=== PATIENT | female | born 1945 | race Hispanic/Latino ===

== ENCOUNTER → 2018-12-08 | Outpatient (CLI) | payer OTHER | END | disposition home or self-care (01) | LOC: RAH 11:13 | PROVIDERS: ATTEND Family Medicine | DX: Z12.31 Encounter for screening mammogram for malignant neoplasm of breast (principal) | CPT/HCPCS: 77067 ==

== ENCOUNTER → 2019-07-11 | Outpatient (CLI) | payer OTHER | END | disposition home or self-care (01) | LOC: SHCH 08:28 | PROVIDERS: ATTEND Internal Medicine Cardiovascular Disease | DX: I08.0 Rheumatic disorders of both mitral and aortic valves (principal); I11.9 Hypertensive heart disease without heart failure | CPT/HCPCS: 93306 ==

== ENCOUNTER → 2020-08-08 | Outpatient (CLI) | payer OTHER ==
[2020-08-08 13:31] LABS: CREATININE 1.4 mg/dL (0.5-1.5)
== END | disposition home or self-care (01) ==
LOC: LAB 12:18
PROVIDERS: ATTEND Family Medicine
DX: M79.605 Pain in left leg (principal); M54.5 Low back pain
CPT/HCPCS: 36415; 82565; 84520

== ENCOUNTER → 2020-09-04 | Outpatient (CLI) | payer OTHER | END | disposition home or self-care (01) | LOC: SHCH 08:09 | PROVIDERS: ATTEND Internal Medicine Cardiovascular Disease | DX: I08.0 Rheumatic disorders of both mitral and aortic valves (principal); R01.1 Cardiac murmur, unspecified | CPT/HCPCS: 93306 ==

== ENCOUNTER → 2020-09-11 | Outpatient (CLI) | payer OTHER | END | disposition home or self-care (01) | LOC: SHCH 09:57 | PROVIDERS: ATTEND Internal Medicine Cardiovascular Disease | DX: I65.23 Occlusion and stenosis of bilateral carotid arteries (principal); R09.89 Other specified symptoms and signs involving the circulatory and respiratory systems | CPT/HCPCS: 93880 ==

== ENCOUNTER → 2022-01-23 | Outpatient (CLI) | payer OTHER | END | disposition home or self-care (01) | LOC: SHCH 09:18 | PROVIDERS: ATTEND Internal Medicine Cardiovascular Disease | DX: I11.9 Hypertensive heart disease without heart failure (principal); I35.0 Nonrheumatic aortic (valve) stenosis | CPT/HCPCS: 93306; 93880 ==

== ENCOUNTER → 2023-10-19 | Outpatient (CLI) | payer OTHER ==
[~2023-10-19] MED LIST: APIX5TAB PO; DRON400T7 PO; FENO145T26 PO; FLUT1BLS3 IH; FOLI1 PO; FOLI1TAB85 PO; FURO40TA5 PO; METO50 PO; PRAV20TA4 PO
[2023-10-19 12:53] LABS: ALBUMIN 2.9 g/dL (3.5-5.0); BILIRUBIN,TOTAL 0.6 mg/dL (0.2-1.0); TOTAL PROTEIN, SERUM 9.3 g/dL (6.0-8.3)
[2023-10-19 15:04] LABS: POTASSIUM 2.8 mmol/L (3.5-5.1)
[2023-10-19 15:21] LABS: MAGNESIUM 1.6 mg/dL (1.6-2.6)
== END | disposition home or self-care (01) ==
LOC: LAB 09:53
PROVIDERS: ATTEND Physician Assistant
DX: I10 Essential (primary) hypertension (principal); E78.5 Hyperlipidemia, unspecified
CPT/HCPCS: 36415; 80053; 83735; 83880

== ENCOUNTER → 2023-10-26 | Outpatient (CLI) | payer OTHER ==
[2023-10-26 12:51] LABS: ALBUMIN 3.3 g/dL (3.5-5.0); BILIRUBIN,TOTAL 0.5 mg/dL (0.2-1.0); POTASSIUM 4.5 mmol/L (3.5-5.1); TOTAL PROTEIN, SERUM 8.8 g/dL (6.0-8.3)
== END | disposition home or self-care (01) ==
LOC: LAB 10:05
PROVIDERS: ATTEND Internal Medicine Cardiovascular Disease
DX: I10 Essential (primary) hypertension (principal)
CPT/HCPCS: 36415; 80053

== ENCOUNTER → 2023-11-02 | Outpatient (CLI) | payer OTHER ==
[~2023-11-02] MED LIST changes: +REGADENOSON 0.4 MG/5 ML PF SYG IVP ONE
== END | disposition home or self-care (01) ==
LOC: SHCH 08:32
PROVIDERS: ATTEND Internal Medicine Cardiovascular Disease
DX: I25.10 Atherosclerotic heart disease of native coronary artery without angina pectoris (principal); I48.91 Unspecified atrial fibrillation; R07.89 Other chest pain; R53.83 Other fatigue
CPT/HCPCS: 78452; 96374; 93017; J2785; A9500 ×2

== ENCOUNTER 2023-11-25 06:37 | Day surgery (SDC) | payer OTHER ==
[2023-11-23 12:03] VITALS: BP 131/73; PULSE 90; RESP 19
[2023-11-23 12:22] LABS: BASOPHILS # (AUTO) 0.06 K/uL (0.00-0.20); BASOPHILS % (AUTO) 0.6 % (0.0-5.0); EOSINOPHILS # (AUTO) 0.07 K/uL (0.00-0.70); EOSINOPHILS % (AUTO) 0.7 % (0.0-8.0); HEMATOCRIT 33.5 % (36-48); IMMATURE GRANULOCYTE ABSOLUTE 0.03 K/uL (0-1); LYMPHOCYTES # (AUTO) 0.7 K/uL (1.0-4.8); LYMPHOCYTES % (AUTO) 7.6 % (21.0-51.0); MEAN CORPUSCULAR HEMOGLOBIN 28.9 pg (27.0-33.0); MEAN CORPUSCULAR VOLUME 93.1 fL (79-99); MONOCYTES # (AUTO) 0.5 K/uL (0.1-1.0); MONOCYTES % (AUTO) 5.2 % (3.0-13.0); NEUTROPHILS # (AUTO) 8.1 K/uL (1.8-7.7); NEUTROPHILS % (AUTO) 85.6 % (40.0-77.0); PLATELET COUNT (AUTO) 438 K/uL (130-400); WHITE BLOOD COUNT (AUTO) 9.4 K/uL (4.8-10.8)
[2023-11-23 12:39] LABS: CREATININE 1.6 mg/dL (0.5-1.5); POTASSIUM 4.2 mmol/L (3.5-5.1)
[~2023-11-25] VITALS: Ht 152.4 cm; Wt 86.9 kg
[2023-11-25] VITALS (7 sets, daily range): BP systolic 102–120; BP diastolic 50–64; PULSE 37–77; RESP 14–16
[~2023-11-25 06:37] MED LIST changes: +FURO20TA6 PO; -FURO40TA5 PO; +PROP225C8 PO; -REGADENOSON 0.4 MG/5 ML PF SYG IVP ONE
[2023-11-25] MEDS ORDERED: LIDOCAINE PF 100MG/5ML (2%) SYRINGE 5ML ONE (07:50)
[2023-11-25] MEDS ORDERED: PROPOFOL 10 MG/ML 20ML VIAL IV ONE (07:51)
[2023-11-25] MEDS ORDERED: PHENYLEPHRINE HCL 10 MG/ML 1ML VIAL IV ONE (07:52)
[2023-11-25] MEDS: 0.9%NACL 1000ML 1,000 ML IV ONE (07:55)
== END 2023-11-25 11:30 | disposition home or self-care (01) ==
LOC: DAH 06:37
PROVIDERS: ATTEND Internal Medicine Cardiovascular Disease
DX: I48.19 Other persistent atrial fibrillation (principal); E11.22 Type 2 diabetes mellitus with diabetic chronic kidney disease; I12.9 Hypertensive chronic kidney disease with stage 1 through stage 4 chronic kidney disease, or unspecified chronic kidney disease; N18.31 Chronic kidney disease, stage 3a; J45.909 Unspecified asthma, uncomplicated; M81.0 Age-related osteoporosis without current pathological fracture; E66.9 Obesity, unspecified; E78.5 Hyperlipidemia, unspecified; G47.33 Obstructive sleep apnea (adult) (pediatric); Z79.899 Other long term (current) drug therapy; Z79.01 Long term (current) use of anticoagulants; Z88.0 Allergy status to penicillin; Z88.8 Allergy status to other drugs, medicaments and biological substances; Z68.35 Body mass index [BMI] 35.0-35.9, adult
CPT/HCPCS: 80048; 85025; 36415; 92960; 93005 ×2; J7030; J2001; J2704; J2371; A4620; A4215; A4213; A4222; A4221; A4663; A4216; A4606; A4223 ×2; J3490

== ENCOUNTER 2024-02-02 09:30 | Day surgery (SDC) | payer OTHER ==
[2024-02-01 16:02] LABS: BASOPHILS # (AUTO) 0.02 K/uL (0.00-0.20); BASOPHILS % (AUTO) 0.2 % (0.0-5.0); EOSINOPHILS # (AUTO) 0.36 K/uL (0.00-0.70); EOSINOPHILS % (AUTO) 4.1 % (0.0-8.0); HEMATOCRIT 32.4 % (36-48); IMMATURE GRANULOCYTE ABSOLUTE 0.04 K/uL (0-1); LYMPHOCYTES # (AUTO) 0.5 K/uL (1.0-4.8); LYMPHOCYTES % (AUTO) 5.2 % (21.0-51.0); MEAN CORPUSCULAR HGB CONC 31.2 g/dL (32.0-36.0); MEAN CORPUSCULAR VOLUME 93.1 fL (79-99); MONOCYTES # (AUTO) 0.5 K/uL (0.1-1.0); NEUTROPHILS # (AUTO) 7.3 K/uL (1.8-7.7); PLATELET COUNT (AUTO) 321 K/uL (130-400); RED BLOOD CELL COUNT(AUTO) 3.48 MIL/uL (4.00-5.50); RED CELL DISTRIBUTION WIDTH 15.2 % (11.0-15.5); WHITE BLOOD COUNT (AUTO) 8.7 K/uL (4.8-10.8)
[2024-02-01 16:05] VITALS: BP 112/70; PULSE 110; RESP 16
[2024-02-01 16:14] LABS: CREATININE 2.2 mg/dL (0.5-1.0); POTASSIUM 4.3 mmol/L (3.5-5.1)
[~2024-02-02] VITALS: Ht 152.4 cm; Wt 81.6 kg
[2024-02-02] VITALS (10 sets, daily range): BP systolic 108–144; BP diastolic 48–78; PULSE 45–96; RESP 14–16
[~2024-02-02 09:30] MED LIST changes: +ALBUHFA IH; +AMIO200T68 PO; -DRON400T7 PO; -FOLI1TAB85 PO; -FURO20TA6 PO; +FURO40TA5 PO; +METO25TA6 PO; -METO50 PO; -PROP225C8 PO
[2024-02-02] MEDS ORDERED: 0.9%NACL 1000ML 1,000 ML IV ONE (11:30)
[2024-02-02] MEDS ORDERED: PROPOFOL 10 MG/ML 20ML VIAL IV ONE (13:38)
== END 2024-02-02 15:10 | disposition home or self-care (01) ==
LOC: DAH 09:30
PROVIDERS: ATTEND Internal Medicine Cardiovascular Disease
DX: I48.19 Other persistent atrial fibrillation (principal); I12.9 Hypertensive chronic kidney disease with stage 1 through stage 4 chronic kidney disease, or unspecified chronic kidney disease; N18.31 Chronic kidney disease, stage 3a; E78.5 Hyperlipidemia, unspecified; J45.909 Unspecified asthma, uncomplicated; G47.33 Obstructive sleep apnea (adult) (pediatric); M81.0 Age-related osteoporosis without current pathological fracture; E66.9 Obesity, unspecified; Z82.49 Family history of ischemic heart disease and other diseases of the circulatory system; Z88.0 Allergy status to penicillin; Z68.34 Body mass index [BMI] 34.0-34.9, adult
CPT/HCPCS: 80048; 85025; 36415; 92960; 93005 ×2; J7030; J2704; A4620; A4215; A4222; A4221; A4663; A4216; A4606; A4223 ×3; J3490

== ENCOUNTER 2024-02-29 17:39 | Observation (INO) | payer OTHER ==
[~2024-02-29] VITALS: Ht 152.4 cm; Wt 79.3 kg
[~2024-02-29 17:39] MED LIST changes: -AMIO200T68 PO; +DOXY100T2 PO; +LEVO250T75 PO; -METO25TA6 PO; +PANT40TA PO; +PRED20B PO
[2024-02-29 18:49] LABS: EOSINOPHILS # (AUTO) 0.11 K/uL (0.00-0.70); EOSINOPHILS % (AUTO) 1.4 % (0.0-8.0); HEMATOCRIT 36.2 % (36-48); IMMATURE GRANULOCYTE ABSOLUTE 0.02 K/uL (0-1); LYMPHOCYTES # (AUTO) 1.2 K/uL (1.0-4.8); LYMPHOCYTES % (AUTO) 15.7 % (21.0-51.0); MEAN CORPUSCULAR HEMOGLOBIN 28.6 pg (27.0-33.0); MEAN CORPUSCULAR HGB CONC 31.8 g/dL (32.0-36.0); MONOCYTES # (AUTO) 0.7 K/uL (0.1-1.0); NEUTROPHILS # (AUTO) 5.8 K/uL (1.8-7.7); NEUTROPHILS % (AUTO) 73.6 % (40.0-77.0); PLATELET COUNT (AUTO) 220 K/uL (130-400); RED BLOOD CELL COUNT(AUTO) 4.02 MIL/uL (4.00-5.50); WHITE BLOOD COUNT (AUTO) 7.8 K/uL (4.8-10.8)
[2024-02-29 19:04] LABS: INR 1.21 (0.85-1.15); PROTHROMBIN TIME 14.1 SEC (9.6-11.6)
[2024-02-29 19:07] LABS: PARTIAL THROMBOPLASTIN TIME 31.1 SEC (26.3-35.5)
[2024-02-29 19:21] LABS: POTASSIUM 4.3 mmol/L (3.5-5.1)
[2024-02-29 19:22] LABS: CREATININE 2.7 mg/dL (0.5-1.0)
[2024-02-29] MEDS: 0.9% NACL 500ML IV.SOLN 500 ML IV ONE (20:20)
[2024-02-29] MEDS ORDERED: TEMAZEPAM 15 MG CAPSULE PO PRN (23:30)
[2024-02-29] MEDS ORDERED: ONDANSETRON 4MG INJ IVP PRN (23:30)
[2024-02-29] MEDS ORDERED: HYDRALAZINE 20MG/ML VIAL IV PRN (23:30)
[2024-02-29] MEDS ORDERED: DOCUSATE SODIUM 100 MG CAP PO PRN (23:30)
[2024-02-29] MEDS ORDERED: LACTULOSE 20 GM/30 ML UDCUP PO PRN (23:30)
[2024-02-29] MEDS ORDERED: ACETAMINOPHEN 325 MG TAB PO PRN (23:30)
[2024-02-29] MEDS ORDERED: ALBUTEROL 0.083% 2.5 MG/3 ML INH IH PRN (23:30)
[2024-02-29] MEDS ORDERED: ACETAMINOPHEN 650 MG SUPPOSITORY RC PRN (23:30)
[2024-03-01] VITALS (10 sets, daily range): BP systolic 115–152; BP diastolic 39–64; PULSE 50–55; RESP 17–19; O2SAT 92–99
[2024-03-01] MEDS ORDERED: ACET-66 PO (00:54)
[2024-03-01 05:16] LABS: BASOPHILS # (AUTO) 0.01 K/uL (0.00-0.20); BASOPHILS % (AUTO) 0.2 % (0.0-5.0); EOSINOPHILS # (AUTO) 0.11 K/uL (0.00-0.70); EOSINOPHILS % (AUTO) 1.8 % (0.0-8.0); HEMATOCRIT 35.9 % (36-48); IMMATURE GRANULOCYTE ABSOLUTE 0.01 K/uL (0-1); LYMPHOCYTES # (AUTO) 1.1 K/uL (1.0-4.8); LYMPHOCYTES % (AUTO) 18.6 % (21.0-51.0); MEAN CORPUSCULAR HEMOGLOBIN 29.2 pg (27.0-33.0); MEAN CORPUSCULAR HGB CONC 31.2 g/dL (32.0-36.0); MEAN CORPUSCULAR VOLUME 93.7 fL (79-99); MONOCYTES # (AUTO) 0.5 K/uL (0.1-1.0); NEUTROPHILS # (AUTO) 4.2 K/uL (1.8-7.7); NEUTROPHILS % (AUTO) 70.2 % (40.0-77.0); PLATELET COUNT (AUTO) 174 K/uL (130-400); RED BLOOD CELL COUNT(AUTO) 3.83 MIL/uL (4.00-5.50); RED CELL DISTRIBUTION WIDTH 16.1 % (11.0-15.5)
[2024-03-01 05:45] LABS: CREATININE 2.4 mg/dL (0.5-1.0); MAGNESIUM 2.1 mg/dL (1.80-2.40); PHOSPHORUS 4.1 mg/dL (2.5-4.9); POTASSIUM 3.5 mmol/L (3.5-5.1); THYROID STIMULATING HORMONE 0.94 uIU/mL (0.36-3.74)
[2024-03-01 06:11] LABS: HEMOGLOBIN A1C 5.7 % (4.0-6.0)
[2024-03-01] MEDS: INSULIN HUMULIN R 100 UNIT/ML 3ML SQ SCH (06:38)
[2024-03-01] MEDS: ATORVASTATIN 40 MG TABLET PO SCH (08:48)
[2024-03-01] MEDS: ASPIRIN 81MG CHEW TAB PO SCH (08:48)
[2024-03-01] MEDS: FOLIC ACID 1 MG TABLET PO SCH (08:48)
[2024-03-01] MEDS: FENOFIBRATE NANOCRYSTALLIZED 145 MG TAB PO SCH (08:48)
[2024-03-01] MEDS: PANTOPRAZOLE 40 MG TAB DR PO SCH (08:48)
[2024-03-01] MEDS: FLUTICASONE IH SCH (08:49)
[2024-03-01] MEDS: UMECLIDIN IH SCH (08:49)
[2024-03-01] MEDS: [UNRECOGNIZED DRUG - OTHER] IH SCH (08:49)
[2024-03-01] MEDS: HEPARIN 5,000 UNIT VIAL SQ SCH (08:55)
[2024-03-01] MEDS ORDERED: ENOXAPARIN SODIUM 40 MG/0.4 ML SYRINGE SQ SCH (09:00)
[2024-03-01] MEDS ORDERED: NON-FORMULARY MEDICATION 1 EACH (Pravastatin Sodium 1 TAB) PO SCH (21:00)
[2024-03-02] VITALS: BP 111/47; PULSE 56; RESP 16
[2024-03-02 04:00] VITALS: BP 123/45; PULSE 49; RESP 18
[2024-03-02 07:35] VITALS: PULSE 52; RESP 18; O2SAT 97
[2024-03-02 08:00] VITALS: BP 118/53; PULSE 50; RESP 14; O2SAT 98
[2024-03-02 11:54] VITALS: BP 145/58; PULSE 48; RESP 16
[2024-03-02] MEDS: BACITRACIN 28.4 GM OINT TP SCH (14:51)
[2024-03-02] MEDS ORDERED: APIXABAN 5 MG TABLET PO SCH (21:00)
== END 2024-03-02 15:40 | disposition home or self-care (01) ==
LOC: EDH 17:39 → EDHIP 21:01 → 3DH 23:57
PROVIDERS: ADMIT Internal Medicine Critical Care Medicine; ATTEND Internal Medicine Critical Care Medicine
DX: I95.9 Hypotension, unspecified (principal); I13.0 Hypertensive heart and chronic kidney disease with heart failure and stage 1 through stage 4 chronic kidney disease, or unspecified chronic kidney disease; E11.22 Type 2 diabetes mellitus with diabetic chronic kidney disease; N18.4 Chronic kidney disease, stage 4 (severe); I50.30 Unspecified diastolic (congestive) heart failure; I48.19 Other persistent atrial fibrillation; M96.811 Intraoperative hemorrhage and hematoma of a musculoskeletal structure complicating other procedure; R79.89 Other specified abnormal findings of blood chemistry; D63.8 Anemia in other chronic diseases classified elsewhere; N17.9 Acute kidney failure, unspecified; S81.811A Laceration without foreign body, right lower leg, initial encounter; S81.812A Laceration without foreign body, left lower leg, initial encounter; J45.909 Unspecified asthma, uncomplicated; I25.2 Old myocardial infarction; E78.5 Hyperlipidemia, unspecified; G47.33 Obstructive sleep apnea (adult) (pediatric); I05.0 Rheumatic mitral stenosis; I25.10 Atherosclerotic heart disease of native coronary artery without angina pectoris; Z79.01 Long term (current) use of anticoagulants; Z86.73 Personal history of transient ischemic attack (TIA), and cerebral infarction without residual deficits; Z88.0 Allergy status to penicillin; W20.8XXA Other cause of strike by thrown, projected or falling object, initial encounter; Y93.89 Activity, other specified; Y92.89 Other specified places as the place of occurrence of the external cause; Y99.8 Other external cause status
CPT/HCPCS: 99285; 84484 ×2; 80048 ×2; 85025 ×2; 85610; 85730; 36415 ×2; 71045; 93005 ×3; 96372 ×2; 83036; 84443; 83735; 84100; 82948 ×4; 94664; G0378 ×43; J1644 ×4

== ENCOUNTER → 2024-12-13 | Outpatient (CLI) | payer OTHER ==
[~2024-12-13] MED LIST changes: +AMIO200T68 PO; -DOXY100T2 PO; -LEVO250T75 PO; +LIDOCAINE HCL 4% LTA SOL 4 ML VIAL TP ONE; -PRED20B PO
== END | disposition home or self-care (01) ==
LOC: WHH 08:54
PROVIDERS: ATTEND Family Medicine
DX: I87.311 Chronic venous hypertension (idiopathic) with ulcer of right lower extremity (principal); L97.812 Non-pressure chronic ulcer of other part of right lower leg with fat layer exposed; R22.43 Localized swelling, mass and lump, lower limb, bilateral; E78.00 Pure hypercholesterolemia, unspecified; I48.91 Unspecified atrial fibrillation; J45.909 Unspecified asthma, uncomplicated; K21.9 Gastro-esophageal reflux disease without esophagitis; M10.9 Gout, unspecified; Z90.49 Acquired absence of other specified parts of digestive tract; Z79.899 Other long term (current) drug therapy
CPT/HCPCS: G0463; A6248; A6196; A6197; A4450

== ENCOUNTER → 2024-12-19 | Outpatient (CLI) | payer OTHER | END | disposition home or self-care (01) | LOC: WHH 09:45 | PROVIDERS: ATTEND Family Medicine | DX: I87.311 Chronic venous hypertension (idiopathic) with ulcer of right lower extremity (principal); L97.812 Non-pressure chronic ulcer of other part of right lower leg with fat layer exposed; R22.43 Localized swelling, mass and lump, lower limb, bilateral; E78.00 Pure hypercholesterolemia, unspecified; I48.91 Unspecified atrial fibrillation; J45.909 Unspecified asthma, uncomplicated; K21.9 Gastro-esophageal reflux disease without esophagitis; M10.9 Gout, unspecified; Z90.49 Acquired absence of other specified parts of digestive tract; Z79.899 Other long term (current) drug therapy | CPT/HCPCS: G0463; A6248 ==

== ENCOUNTER → 2024-12-26 | Outpatient (CLI) | payer OTHER | END | disposition home or self-care (01) | LOC: WHH 09:45 | PROVIDERS: ATTEND Family Medicine | DX: I87.311 Chronic venous hypertension (idiopathic) with ulcer of right lower extremity (principal); L97.812 Non-pressure chronic ulcer of other part of right lower leg with fat layer exposed; R22.43 Localized swelling, mass and lump, lower limb, bilateral; E78.00 Pure hypercholesterolemia, unspecified; I48.91 Unspecified atrial fibrillation; J45.909 Unspecified asthma, uncomplicated; K21.9 Gastro-esophageal reflux disease without esophagitis; M10.9 Gout, unspecified; Z90.49 Acquired absence of other specified parts of digestive tract; Z79.899 Other long term (current) drug therapy | CPT/HCPCS: G0463; A6248 ==

== ENCOUNTER → 2025-01-16 | Outpatient (CLI) | payer OTHER ==
[~2025-01-16] MED LIST changes: -LIDOCAINE HCL 4% LTA SOL 4 ML VIAL TP ONE
== END | disposition home or self-care (01) ==
LOC: WHH 09:02
PROVIDERS: ATTEND Family Medicine
DX: I87.311 Chronic venous hypertension (idiopathic) with ulcer of right lower extremity (principal); L97.812 Non-pressure chronic ulcer of other part of right lower leg with fat layer exposed; R22.43 Localized swelling, mass and lump, lower limb, bilateral; E78.00 Pure hypercholesterolemia, unspecified; I48.91 Unspecified atrial fibrillation; J45.909 Unspecified asthma, uncomplicated; K21.9 Gastro-esophageal reflux disease without esophagitis; M10.9 Gout, unspecified; Z90.49 Acquired absence of other specified parts of digestive tract; Z79.899 Other long term (current) drug therapy
CPT/HCPCS: G0463; A6248; A4450